=== PATIENT | female | born 1985 | race Caucasian/White ===

== ENCOUNTER 2018-09-08 11:27 | Inpatient (IN) | payer OTHER ==
[~2018-09-08] VITALS: Ht 170.2 cm; Wt 52.2 kg
[2018-09-08 11:29] VITALS: BP 142/102
[2018-09-08 12:03] LABS: URINE BILIRUBIN 2+ (Negative); URINE BLOOD NEGATIVE (Negative); URINE CLARITY SL CLOUDY; URINE COLOR ORANGE; URINE GLUCOSE-RANDOM* NEGATIVE (Negative); URINE KETONES TRACE (Negative); URINE LEUKOCYTES-REFLEX TRACE (Negative); URINE NITRITE-REFLEX NEGATIVE (Negative); URINE PROTEIN (DIPSTICK) 1+ (Negative); URINE SPECIFIC GRAVITY 1.015 (1.005-1.035)
[2018-09-08 12:05] LABS: HEMATOCRIT 33.7 % (37.0-47.0); HEMOGLOBIN 11.6 gm/dL (12.0-15.0); MCH 32.7 pg (26.0-34.0); MCHC 34.4 g/dL (28.0-37.0); MCV 95.1 fL (80.0-100.0); PLATELET COUNT 197 thou/uL (150-400); RBC 3.54 mil/uL (4.20-5.00); RDW 17.1 % (10.5-14.5); WBC 3.3 thou/uL (4.0-11.0)
[2018-09-08 12:07] LABS: ICTOTEST (BILI CONFIRMATORY) Positive (Negative)
[2018-09-08 12:19] LABS: CALCIUM 9.5 mg/dL (8.5-10.1); CREATININE 0.7 mg/dL (0.6-1.0); POTASSIUM 3.6 mmol/L (3.5-5.1)
[2018-09-08 12:25] LABS: ALBUMIN 3.6 g/dL (3.4-5.0); TOTAL BILIRUBIN 1.3 mg/dL (<0.1-1.0); TOTAL PROTEIN 9.7 g/dL (6.4-8.2)
[2018-09-08] MEDS ORDERED: PREDNISONE 20 M20 MG PO (12:26)
[2018-09-08] MEDS ORDERED: OMEPRAZOLE 20 M20 M1 PO (12:26)
[2018-09-08] MEDS ORDERED: CLONAZEPAM 1 MG1 M1 PO (12:26)
[2018-09-08] MEDS ORDERED: PRISTIQ ER25 MG PO (12:27)
[2018-09-08] MEDS ORDERED: NORCO 10-325 T1 EACH PO (12:27)
[2018-09-08] MEDS ORDERED: AMLODIPINE BESY10 MG PO (12:27)
[2018-09-08] MEDS ORDERED: ONDANSETRON HCL4 M2 PO (12:28)
[2018-09-08 12:32] LABS: SQUAMOUS >10 Many /LPF (0-3)
[2018-09-08 12:33] LABS: BACTERIA-REFLEX 1-9 Few /HPF (None Seen); CASTS None Seen /LPF (None Seen); CRYSTALS None Seen /LPF (None Seen); URINE RBC 0-2 Rare /HPF (0-2); URINE WBC-REFLEX 0-5 Rare /HPF (0-5)
[2018-09-08 12:37] LABS: PLATELET ESTIMATE NORMAL
[2018-09-08] MEDS ORDERED: ADVAIR 500-501 EACH INH (13:33)
[2018-09-08] MEDS ORDERED: ERGOCALCIF50000 UNIT PO (13:34)
[2018-09-08] MEDS ORDERED: LEVALBUTEROL TA15 GM INH (13:35)
[2018-09-08 13:36] VITALS: BP 148/96
[2018-09-08 13:45] LABS: AMP/METHAMP Negative (Negative); BARBITURATES POSITIVE (Negative); BENZODIAZEPINES POSITIVE (Negative); COCAINE Negative (Negative); METHADONE Negative (Negative); OPIATES Negative (Negative); PCP Negative (Negative)
[2018-09-08 14:02] LABS: CHOLESTEROL 248 mg/dL (<200); HDL CHOLESTEROL 39 mg/dL (>40); LDL CHOLESTEROL 182 mg/dL (<100); TC:HDL 6.4 Ratio (Not establshd); TRIGLYCERIDE 139 mg/dL (<150); VLDL 28 mg/dL (<40)
[2018-09-08 14:16] VITALS: BP 146/90
[2018-09-08 14:41] LABS: FOLIC ACID 18.8 ng/mL (8.6-58.9)
[2018-09-08 15:30] VITALS: BP 136/104
--- NOTE | 2018-09-08 18:15 | NUR ---
33 YEAR OLD FEMALE ADMITTED TO ROOM 213 FROM ED FOR ABDOMINAL PAIN. VSS, ALERT AND ORIENTED X 4, LACTATED RINGERS INFUSING AT 150. CALL TO DR. CORDOBA REQUESTING ORDER FOR PHENEGREN FOR NAUSEA. WILL CONTINUE TO MONITOR.
[2018-09-08 20:00] VITALS: BP 148/110
[2018-09-09 04:00] VITALS: BP 113/102
[2018-09-09 05:58] LABS: HEMATOCRIT 33.4 % (37.0-47.0); HEMOGLOBIN 11.2 gm/dL (12.0-15.0); MCH 32.3 pg (26.0-34.0); MCHC 33.5 g/dL (28.0-37.0); MCV 96.3 fL (80.0-100.0); PLATELET COUNT 151 thou/uL (150-400); RBC 3.47 mil/uL (4.20-5.00); WBC 2.2 thou/uL (4.0-11.0)
[2018-09-09 06:14] LABS: ALBUMIN 3.1 g/dL (3.4-5.0); CREATININE 0.6 mg/dL (0.6-1.0); MAGNESIUM 1.5 mg/dL (1.8-2.4); POTASSIUM 4.3 mmol/L (3.5-5.1); TOTAL PROTEIN 8.6 g/dL (6.4-8.2)
[2018-09-09 07:25] VITALS: BP 138/97
--- NOTE | 2018-09-09 07:30 | NUR ---
ASSESSMENT DOCUMENTED.PT RESTING IN NO ACUTE DISTRESS AT THIS TIME.A/OX4.PT ADMITTED WITH ACUTE PANCREATITIS.C/O ABDOMINAL PAIN WITH NAUSEA.NO EPISODE OF VOMITING,NAUSEA TREATED WITH COMPAZINE AND ZOFRAN.PT ASLO ON CIWR PER PROTOCOL,VERY ANXIOUS AND WITH VISIBLE TREMORS,LORAZEPAM PER PROTOCOL AND PT WAS ABLE TO FALL ASLEEP.LR INFUSING AT 150CC/ML.UP WITH SBA,PT VERY UNSTEADY ON FEET.VOIDING ADEQUATELY.PT DENIES NEEDS AT THIS TIME.BOYFRIEND ON BEDDSIDE.
[2018-09-09 08:02] LABS: ABSOLUTE NEUTROPHILS 1.3 thou/uL (1.4-8.2)
[2018-09-09 08:03] LABS: ANISOCYTOSIS 1+
[2018-09-09 16:21] VITALS: BP 135/103
--- NOTE | 2018-09-09 18:29 | NUR ---
ASSESSMENT CHARTED, VSS, ALERT AND ORIENTED, COMPLAINTS OF ABDOMINAL PAIN, MORPHINE GIVEN. WILL CONTINUE TO MONITOR
[2018-09-09 20:42] VITALS: BP 146/99
[2018-09-10 03:24] VITALS: BP 140/91
--- NOTE | 2018-09-10 05:39 | NUR ---
pt resting quietly in room thru the night, c/o abdominal pain prn pain med given, vss, will con't to monitor per ppoc.
[2018-09-10 08:34] VITALS: BP 140/92
[2018-09-10 13:45] LABS: HEMATOCRIT 35.9 % (37.0-47.0); MCH 32.1 pg (26.0-34.0); MCHC 33.3 g/dL (28.0-37.0); MCV 96.2 fL (80.0-100.0); RBC 3.73 mil/uL (4.20-5.00); RDW 16.3 % (10.5-14.5); WBC 3.2 thou/uL (4.0-11.0)
[2018-09-10 14:02] LABS: ALBUMIN 3.5 g/dL (3.4-5.0); CALCIUM 9.4 mg/dL (8.5-10.1); CREATININE 0.7 mg/dL (0.6-1.0); POTASSIUM 4.1 mmol/L (3.5-5.1); TOTAL BILIRUBIN 2.2 mg/dL (<0.1-1.0); TOTAL PROTEIN 9.4 g/dL (6.4-8.2)
[2018-09-10 16:10] VITALS: BP 140/104
--- NOTE | 2018-09-10 19:34 | NUR ---
ASSUMED CARE AT SHIFT CHANGE, ALERT AND ORIENTED X4. CIWA 2-3 THROUGH OUT THE DAY AND WAS MEDICATED INDICATED. NEW IV INSERTED BY IV TEAM, AND PATIENT TOLERATED PROCEDURE WELL. PROGRESSING TOWARDS GOALS AND WILL CONTINUE WITH POC.
[2018-09-10 19:35] VITALS: BP 136/102
[2018-09-11 04:59] VITALS: BP 144/110
[2018-09-11 06:36] LABS: HEMATOCRIT 32.9 % (37.0-47.0); MCH 32.5 pg (26.0-34.0); MCHC 33.4 g/dL (28.0-37.0); MCV 97.5 fL (80.0-100.0); RBC 3.38 mil/uL (4.20-5.00); RDW 16.9 % (10.5-14.5); WBC 4.6 thou/uL (4.0-11.0)
[2018-09-11 06:51] LABS: CALCIUM 9.3 mg/dL (8.5-10.1); CREATININE 0.6 mg/dL (0.6-1.0); MAGNESIUM 1.7 mg/dL (1.8-2.4); POTASSIUM 3.2 mmol/L (3.5-5.1)
[2018-09-11 08:13] VITALS: BP 133/83
--- NOTE | 2018-09-11 08:19 | NUR ---
pt resting on and off thru the noc, after pain meds given earlier in the evening, pt ambulated in [place], vss except diastoylic bp elevated to 110 this am, episode of sever pain called to [facility] recieved orders for lab and one time dose of pain med. pt able to relax but still states pain is out of control, report given to next shift to on't with pts ppoc.
[2018-09-11 16:53] VITALS: BP 134/101
--- NOTE | 2018-09-11 19:44 | NUR ---
PATIENT ALERT AND ORIENTED, VSS, PATIENT GIVEN ULTRAM FOR PAIN, AMBULATED IN [place], ATE APPLESAUCE AND DRINKING FLUIDS, WILL CONTINUE TO MONITOR.
[2018-09-11 20:49] VITALS: BP 150/109
--- NOTE | 2018-09-12 03:27 | NUR ---
care assumed at 2300, patient was in bed asleep. patient is up at [place]. patient denied pain or discomfort. patient calm and cooperative with meds and care. patient ready to seek help with [facility] program when she goes back home. patient in bed asleep at this time breathing regular and unlaboured.
[2018-09-12 03:31] VITALS: BP 145/10
[2018-09-12 08:18] VITALS: BP 134/96
[2018-09-12] MEDS ORDERED: TRAMADOL 50 MG50 MG PO (08:55)
[2018-09-12] MEDS ORDERED: UNICOMPLEX M TA1 TA1 PO (08:56)
[2018-09-12] MEDS ORDERED: CHLORDIAZEPOXID10 MG PO (08:56)
[2018-09-12] MEDS ORDERED: MEDROLDOSEPACK PO (08:56)
[2018-09-12 10:36] VITALS: BP 134/96
--- NOTE | 2018-09-12 11:40 | NUR ---
ASSUMED CARE OF PT AT 0700 THIS SHIFT. PT HAS BEEN COOPERATIVE, HAS MENTIONED FEELING ANXIETY THIS MORNING AND ASKING FOR MEDICATION FOR IT. PT HAS SAID SHE IS STILL IN SOME PAIN IN HER STOMACH. PT'S CIWA IS STILL LESS THAN 8 THIS SHIFT. PT HAS BEEN DISCHARGED AND AGREES WITH DISCHARGE, CURRENTLY WAITING ON HER BOYFRIEND TO PICK HER UP. ASSESSMENTS ARE DOCUMENTED. PT HAS NOT HAD VISITORS THIS SHIFT, EDUCATION WAS PROVIDED. PLAN OF CARE IS TO DISCHARGE PT THIS SHIFT.
[2018-09-12 12:49] VITALS: BP 134/96
--- NOTE | 2018-09-12 15:11 | NUR ---
FAXED FACE SHEET TO [employer] TO HELP WITH MEDICAID APPLICATION.
== END 2018-09-12 12:40 | disposition home or self-care (01) | DRG 438 ==
LOC: ER 11:27 → 2N 13:17 → EROBS 13:17 → 2N 14:33
PROVIDERS: Internal Medicine; Nurse Practitioner; Nurse Practitioner Acute Care; Physician Assistant; ADMIT Hospitalist
DX: K85.20 Alcohol induced acute pancreatitis without necrosis or infection (principal); E43 Unspecified severe protein-calorie malnutrition; K86.1 Other chronic pancreatitis; R74.0 Nonspecific elevation of levels of transaminase and lactic acid dehydrogenase [LDH]; F10.10 Alcohol abuse, uncomplicated; Y90.9 Presence of alcohol in blood, level not specified; K74.60 Unspecified cirrhosis of liver; I10 Essential (primary) hypertension; M06.9 Rheumatoid arthritis, unspecified; Z79.899 Other long term (current) drug therapy; Z68.1 Body mass index [BMI] 19.9 or less, adult
CPT/HCPCS: 10081